=== PATIENT | female | born 1960 | race African-American/Black ===

== ENCOUNTER 2016-10-28 02:44 | Emergency (ER) | payer OTHER ==
[~2016-10-28] VITALS: Ht 177.8 cm; Wt 82.0 kg
[2016-10-28 02:44] VITALS: Ht 177.8 cm; Wt 82.0 kg
[~2016-10-28 02:44] MED LIST: CLON0.5T4 PO; RIS1 PO; TRAZ50TA18 PO
--- NOTE | 2016-10-28 02:59 | ERA ---
ER Documentation Chief Complaint Date/Time DATE: 10/28/16 TIME: 02:59 Chief Complaint Suicidal ideation HPI The patient is a 56-year-old female, presenting to the ER because of suicidal ideation, auditory hallucination. She plans to run into traffic to kill herself.. She has not been taking her medication, denies headache, neck pain, chest pain, dyspnea, abdominal pain, vomiting, dysuria, diarrhea. She smokes a pack a day, denies drinking, does crack cocaine Past medical history: Depression, schizophrenia, psychosis, bipolar Past surgical history: Right upper extremity ROS All systems reviewed and are negative except as per history of present illness. Medications Home Meds Reported Medications Clonazepam* (Clonazepam*) 0.5 Mg Tablet, 0.5 MG PO BID, TAB 10/11/15 Trazodone Hcl* (Trazodone Hcl*) 50 Mg Tablet, 50 MG PO QHS, #30 TAB 10/11/15 Risperidone* (Risperdal*) 1 Mg Tablet, 1 MG PO BID, TAB 10/11/15 Allergies Allergies: Coded Allergies: No Known Allergy (Unverified , 10/11/15) PMhx/Soc History of Surgery: Yes ("steel Zoran" in Rt arm) Anesthesia Reaction: No Hx Neurological Disorder: No Hx Respiratory Disorders: No Hx Cardiac Disorders: No Hx Psychiatric Problems: Yes (Depression, Paranoid Schizophrenia) Hx Miscellaneous Medical Probl: No Hx Alcohol Use: Yes (Beer today) Hx Substance Use: No Hx Tobacco Use: Yes Physical Exam Vitals Vital Signs Date Time Temp Pulse Resp B/P Pulse Ox O2 Delivery O2 Flow Rate FiO2 10/28/16 02:44 98.7 88 20 135/77 96 Physical Exam Const: No acute distress. Head: Atraumatic. Eyes: Normal Conjunctiva. ENT: Normal External Ears, Nose and Mouth. Neck: Full range of motion. No meningismus. Resp: Clear to auscultation bilaterally. Cardio: Regular rate and rhythm, no murmurs. Abd: Soft, non distended, normal bowel sounds, non tender. Skin: No petechiae or rashes. Back: No midline or flank tenderness. Ext: No cyanosis, or edema. Neur: Awake and alert. No focal deficit Psych: Depressed and suicidal. Result Diagram: 10/28/16 0350 Results 24 hrs Laboratory Tests Test 10/28/16 03:50 2/2/17 04:00 Basophils # 0.010^3/ul Basophils % 0.3% Eosinophils # 0.110^3/ul Eosinophils % 1.2% Hematocrit 40.2% Hemoglobin 13.5g/dl Lymphocytes # 2.110^3/ul Lymphocytes % 18.1% Mean Corpuscular Hemoglobin 29.1pg Mean Corpuscular Hemoglobin Concent 33.7g/dl Mean Corpuscular Volume 86.4fl Mean Platelet Volume 9.4fl Monocytes # 0.610^3/ul Monocytes % 5.2% Neutrophils # 8.810^3/ul Neutrophils % 75.2% Nucleated Red Blood Cells # 0.010^3/ul Nucleated Red Blood Cells % 0.0/100WBC Platelet Count 92285^3/UL Red Blood Count 4.6510^6/ul Red Cell Distribution Width 13.4% White Blood Count 11.710^3/ul Urine Bilirubin NEGATIVE Urine Clarity CLEAR Urine Color LT. YELLOW Urine Glucose NEGATIVE% Urine Hemoglobin 1+ Urine Ketones NEGATIVE Urine Leukocyte Esterase NEGATIVE Urine Microscopic RBC 2-5/HPF Urine Microscopic WBC 0-2/HPF Urine Nitrite NEGATIVE Urine Specific [place] >=1.030 Urine Squamous Epithelial Cells FEW Urine Total Protein NEGATIVE Urine Uric Acid Crystals MANY Urine Urobilinogen 0.2 E.U./dL Urine pH 5.5 Procedures/MDM MEDICAL MAKING DECISION: The patient is a 56-year-old female, presenting with acute suicidal ideation. The differential diagnoses considered include but are not limited to drug-induced psychosis, psychosis, decompensated psychiatric illness Departure Diagnosis: Primary Impression: Suicidal ideation Additional Impression: Substance abuse Condition: Stable Comments She is awaiting for telepsychiatrist evaluation MEHDI LEVI MD Oct 28, 2016 02:59
[2016-10-28 04:44] LABS: BASOPHILS % 0.3 % (0.0-2.0); EOSINOPHILS # 0.1 10^3/ul (0.0-0.5); EOSINOPHILS % 1.2 % (0.0-7.0); HEMATOCRIT 40.2 % (37.0-47.0); HEMOGLOBIN 13.5 g/dl (12.0-16.0); LYMPHOCYTES # 2.1 10^3/ul (0.8-2.9); LYMPHOCYTES % 18.1 % (15.0-51.0); MEAN CORPUSCULAR HEMOGLOBIN 29.1 pg (29.0-33.0); MEAN CORPUSCULAR HGB CONC 33.7 g/dl (32.0-37.0); MEAN CORPUSCULAR VOLUME 86.4 fl (82.0-101.0); MEAN PLATELET VOLUME 9.4 fl (7.4-10.4); MONOCYTE # 0.6 10^3/ul (0.3-0.9); MONOCYTES % 5.2 % (0.0-11.0); NEUTROPHIL # 8.8 10^3/ul (1.6-7.5); NEUTROPHILS % 75.2 % (39.0-77.0); PLATELET COUNT 222 10^3/UL (140-440); RED BLOOD COUNT 4.65 10^6/ul (4.20-5.40); RED CELL DISTRIBUTION WIDTH 13.4 % (11.5-14.5); UNCORRECTED WBC 11.7 10^3/ul (4.8-10.8); WHITE BLOOD COUNT 11.7 10^3/ul (4.8-10.8)
[2016-10-28 04:45] LABS: CONDITION 1
[2016-10-28 04:47] LABS: ALBUMIN 4.4 g/dl (3.3-4.9)
[2016-10-28 04:48] LABS: CHLORIDE 105 mmol/L (97-110); POTASSIUM 4.1 mmol/L (3.5-5.1); SODIUM 145 mmol/L (135-144)
[2016-10-28 04:49] LABS: ADD UMIC YES; URINE BILIRUBIN (Dip) NEGATIVE (NEGATIVE); URINE BLOOD (Dip) 1+ (NEGATIVE); URINE COLOR LT. YELLOW (YELLOW); URINE GLUCOSE (Dip) NEGATIVE (NEGATIVE); URINE KETONES (Dip) NEGATIVE (NEGATIVE); URINE LEUKOCYTE ESTERASE (Dip) NEGATIVE (NEGATIVE); URINE NITRITE (Dip) NEGATIVE (NEGATIVE); URINE TOTAL PROTEIN (Dip) NEGATIVE (NEGATIVE); URINE UROBILINOGEN (Dip) 0.2 E.U./dL (0.1-1.0)
[2016-10-28 04:50] LABS: ALBUMIN/GLOBULIN RATIO 1.02; ALKALINE PHOSPHATASE 107 IU/L (42-121); ANION GAP 18 (8-16); ASPARTATE AMINO TRANSFERASE 24 IU/L (15-46); BILIRUBIN,INDIRECT 0.1 mg/dl (0-1.1); BILIRUBIN,TOTAL 0.1 mg/dl (0.2-1.3); BLOOD UREA NITROGEN 23 mg/dl (7-20); CARBON DIOXIDE 26 mmol/L (21-31); CREATININE 1.11 mg/dl (0.44-1.00); TOTAL PROTEIN 8.7 g/dl (6.1-8.1)
[2016-10-28 04:51] LABS: ALANINE AMINOTRANSFERASE 25 IU/L (13-69); CALCIUM 9.6 mg/dl (8.4-10.2); GLUCOSE 133 mg/dl (70-220)
[2016-10-28 05:15] LABS: BARBITURATES Negative (NEGATIVE)
[2016-10-28 05:20] LABS: SQUAMOUS EPITHELIAL CELL,UR FEW; URIC ACID CRYSTALS,URINE MANY
[2016-10-28 05:31] LABS: BENZODIAZEPINES Negative (NEGATIVE); CANNABINOIDS Negative (NEGATIVE); COCAINE Positive (NEGATIVE); OPIATES Negative (NEGATIVE)
[2016-10-28 05:31] LABS: ACETAMINOPHEN < 10.0 ug/ml (10.0-30.0); ETHANOL < 10.0 mg/dl; SALICYLATE < 1.0 mg/dl (5.0-30.0)
--- NOTE | 2016-10-28 08:02 | PSY ---
Date/Time of Note Date/Time of Note DATE: 10/28/16 TIME: 07:34 Psychiatric Subjective Eval Subjective Evaluation Chief Complaint: initially called 911 for CP; now resolved, states suicidal thoughts. calm. History of present illness patient is a 56 yo female with PPH of bipolar do , anxiety and cocaine abuse who called 911 due to chest pain, while in the ER she mentioned that she was feeling suicidal . patient states that she has been feeling depressed, hopeless and helpless for months due to financial hardship and not having any support as well as her cocaine abuse. she denies any current manic or psychotic symptoms, she states that she is feeling suicidal and she wants to overdose on drugs, she has not been able to sleep well for days, decrease appetite, loss of interest . Past psychiatric history on abilify 30 mg daily Family History denies Medical history Problems Medical Problems: (1) Abdominal pain Status: Acute (2) Constipation Status: Acute (3) Intestinal cramps Status: Acute (4) Major depression Status: Acute (5) Psychosis Status: Acute (6) Substance abuse Status: Acute (7) Suicidal ideation Status: Acute (8) Syncope Status: Acute (9) Toe fracture, left Status: Acute Allergies: Coded Allergies: No Known Allergy (Unverified , 10/11/15) Substance Abuse Substance abuse history: Yes (cocaine ) Prior substance abuse treatmen: No Social History Marital status: single Level of education: hs DPA/Conservatorship: No Occupation/Group Home: unemployed Psychiatric Objective Eval Review of Systems: Review of Systems: Not Applicable Physical Examination: Physical Examination: Applicable Sleep: Insomnia Appetite: Decreased Energy: Decreased Interest: Decreased Mental Status Examination: Appearance: Disheveled Eye Contact: Fair Psychomotor Activity: Slow Behavior: Cooperative Speech: Clear AFFECT: Depressed Mood: Depressed Though Process: Linear Thought Content: Hallucinations Suicidal: Yes Homicidal: No On 72 hour hold: No Orientation: x3 Cognition: Alert Insight: Impared Judgement: Impared Attention Span: Distractible Laboratory Results Laboratory Tests Test 10/28/16 03:50 10/28/16 04:00 Acetaminophen Level < 10.0ug/ml Alanine Aminotransferase (ALT/SGPT) 25IU/L Albumin 4.4g/dl Albumin/Globulin Ratio 1.02 Alkaline Phosphatase 107IU/L Anion Gap 18 Aspartate Amino Transf (AST/SGOT) 24IU/L Basophils # 0.010^3/ul Basophils % 0.3% Blood Urea Nitrogen 23mg/dl Calcium Level 9.6mg/dl Carbon Dioxide Level 26mmol/L Chloride Level 105mmol/L Creatinine 1.11mg/dl Direct Bilirubin 0.00mg/dl Eosinophils # 0.110^3/ul Eosinophils % 1.2% Ethyl Alcohol Level < 10.0mg/dl Globulin 4.30g/dl Glucose Level 133mg/dl Hematocrit 40.2% Hemoglobin 13.5g/dl Indirect Bilirubin 0.1mg/dl Lymphocytes # 2.110^3/ul Lymphocytes % 18.1% Mean Corpuscular Hemoglobin 29.1pg Mean Corpuscular Hemoglobin Concent 33.7g/dl Mean Corpuscular Volume 86.4fl Mean Platelet Volume 9.4fl Monocytes # 0.610^3/ul Monocytes % 5.2% Neutrophils # 8.810^3/ul Neutrophils % 75.2% Nucleated Red Blood Cells # 0.010^3/ul Nucleated Red Blood Cells % 0.0/100WBC Platelet Count 92810^3/UL Potassium Level 4.1mmol/L Red Blood Count 4.6510^6/ul Red Cell Distribution Width 13.4% Salicylates Level < 1.0mg/dl Sodium Level 145mmol/L Total Bilirubin 0.1mg/dl Total Protein 8.7g/dl White Blood Count 11.710^3/ul Urine Amphetamines Screen Negative Urine Barbiturates Negative Urine Benzodiazepines Screen Negative Urine Bilirubin NEGATIVE Urine Cannabinoids Negative Urine Clarity CLEAR Urine Cocaine Screen Positive Urine Color LT. YELLOW Urine Glucose NEGATIVE% Urine Hemoglobin 1+ Urine Ketones NEGATIVE Urine Leukocyte Esterase NEGATIVE Urine Microscopic RBC 2-5/HPF Urine Microscopic WBC 0-2/HPF Urine Nitrite NEGATIVE Urine Opiates Screen Negative Urine Specific [place] >=1.030 Urine Squamous Epithelial Cells FEW Urine Total Protein NEGATIVE Urine Uric Acid Crystals MANY Urine Urobilinogen 0.2 E.U./dL Urine pH 5.5 Assessment and Plan Assessment/Diagnosis [place] I: major depressive do severe without psychotic features anxiety do nos cocaine abuse [place] II: deferred [place] III: as per record [place] IV: poor social support [place] V: gaf 25 Recommendation/Plan Medication Management abilify 30 mg po qhs Follow-up/Disposition Please admit patient on unvoluntary status due to Danger to self, In my opinion, patient currently MEETS criterion for inpatient care and CANNOT be safely treated at a lower level of care today as evidenced by the following risk factors: Current and Recent Suicidal Ideation Previous suicide attempt and severe self-destructive behavior Intense feelings of hopelessness and lack of future orientation. Significant recent DETERIORATION in function, behavior and thought processes Substance ABUSE in conjunction with another psychiatric disorder Non-Compliance with Outpatient Treatment Patient has failed outpatient and requires further inpatient assessment Medication changes require observation unavailable at a lower level of care 5150 Recommendation: RAJAN Gonzalez MD Oct 28, 2016 07:44
[2016-10-28] MEDS ORDERED: ATOR10TA65 PO (09:05)
[2016-10-28 11:40] VITALS: BP 127/73; PULSE 86; RESP 18; TEMP 98.3
== END 2016-10-28 11:46 ==
LOC: E/R 02:44
DX: F14.10 Cocaine abuse, uncomplicated (principal); F17.210 Nicotine dependence, cigarettes, uncomplicated; R45.851 Suicidal ideations
CPT/HCPCS: 36415; 80053; 80306; 80307; 81001; 81003; 85025